=== PATIENT | female | born 1980 | race Caucasian/White ===

== ENCOUNTER 2024-04-20 22:13 | Emergency (ER) | payer OTHER ==
[~2024-04-20] VITALS: Ht 175.3 cm; Wt 77.0 kg
[~2024-04-20 22:13] MED LIST: FLUC200T2 PO; LIDO20SO16 MM; TRAM50TA2 PO
[2024-04-21] MEDS ORDERED: ketorolac trometh. 30mg/ml inj. IV ONE (01:15)
[2024-04-21] MEDS ORDERED: PRED20TA PO (01:15)
[2024-04-21] MEDS ORDERED: LIDO30CR TOP (01:16)
[2024-04-21] MEDS: methylPREDNISolone sod succ 125mg/2ml vial IV ONE (01:23)
[2024-04-21] MEDS: LIDOcaine/PRILOcaine 5gm cream TP ONE (01:23)
[2024-04-21] MEDS: ketorolac tromethamine 15mg/ml inj. IV ONE (01:24)
[2024-04-21] MEDS ORDERED: ESZO2TAB56 PO (01:26)
[2024-04-21 01:37] VITALS: BP 117/82; PULSE 75; RESP 16; TEMP 98.5; O2SAT 97
== END 2024-04-21 01:39 | disposition home or self-care (01) ==
LOC: ER 22:14
DX: L29.8 Other pruritus (principal); L93.2 Other local lupus erythematosus; E03.9 Hypothyroidism, unspecified; R07.81 Pleurodynia; Z88.1 Allergy status to other antibiotic agents; Z88.8 Allergy status to other drugs, medicaments and biological substances; Z79.2 Long term (current) use of antibiotics; Z79.52 Long term (current) use of systemic steroids
CPT/HCPCS: 93005; 96374; 96375; 99284; J1885; J2919

== ENCOUNTER 2024-05-29 17:51 | Emergency (ER) | payer OTHER ==
[~2024-05-29] VITALS: Ht 175.3 cm; Wt 77.0 kg
[~2024-05-29 17:51] MED LIST changes: +ESZO2TAB56 PO; +LIDO30CR TOP
[2024-05-29 18:46] LABS: BASOPHILS % (AUTO) 0.4 % (0-1); EOSINOPHILS % (AUTO) 0.1 % (0-6); LYMPHOCYTES # (AUTO) 0.7 X10'3 (1.1-4.8); MEAN CORPUSCULAR HGB CONC 30.6 g/dL (33.0-36.5); MONOCYTES # (AUTO) 0.2 X10'3 (0-0.9); NEUTROPHILS % (AUTO) 89.2 % (42-75)
[2024-05-29 18:50] LABS: HEMATOCRIT 32.5 % (35.0-45.0); LYMPHOCYTES % (AUTO) 8.3 % (21-51); MEAN CORPUSCULAR HEMOGLOBIN 20.9 PG (27.0-31.0); MEAN CORPUSCULAR VOLUME 68.1 FL (78-98); MEAN PLATELET VOLUME 7.7 FL (7.4-10.4); NEUTROPHILS # (AUTO) 7.8 X10'3 (1.8-7.7); PLATELET COUNT 567 X10'3 (140-440); RED BLOOD COUNT 4.77 X10'6 (4.20-5.60); RED CELL DISTRIBUTION WIDTH 20.3 % (11.5-14.5); WHITE BLOOD COUNT 8.7 X10'3 (4.5-11.0)
[2024-05-29 18:56] LABS: ALBUMIN 4.2 G/DL (3.4-5.0); ANION GAP 8 (8-16); BLOOD UREA NITROGEN 9 MG/DL (7-18); BUN/CREATININE RATIO 7.5 (10.0-20.0); CHLORIDE 102 MMOL/L (99-107); GLUCOSE 155 MG/DL (70-104); POTASSIUM 3.8 MMOL/L (3.5-5.1); PRO BRAIN NATRIURETIC PEPTIDE 140 PG/ML (0-125); SODIUM 140 MMOL/L (135-145); TOTAL CARBON DIOXIDE 30.2 MMOL/L (24-32); eCRCL 63 ML/MIN; eGFR 49 ML/MIN
[2024-05-29 19:01] VITALS: TEMP 98.9
[2024-05-29 19:13] LABS: PLATELET ESTIMATE INCREASED
[2024-05-29 19:14] LABS: ELLIPTOCYTES FEW
[2024-05-29 19:18] LABS: ANISOCYTOSIS 3+; MICROCYTOSIS 2+; SCHISTOCYTES FEW
[2024-05-29 19:20] LABS: POLYCHROMASIA FEW
[2024-05-29] MEDS: dexamethasone sod phosphate 10mg/ml inj IV STA (19:39)
[2024-05-29] MEDS: ondansetron/PF 4mg/2ml inj IV ONE (19:40)
[2024-05-29] MEDS: ketorolac trometh. 30mg/ml inj. IV ONE (19:41)
[2024-05-29] MEDS: dicyclomine 10 MG capsule PO ONE (19:41)
[2024-05-29] MEDS: normal saline 1000ml 1,000 ML IV ONE (19:42)
[2024-05-29] MEDS: LIDOcaine 2% Viscous 15ml cup MM PRN (19:42)
[2024-05-29] MEDS: HYDROcodone/acetaminophen 5mg/325mg tablet PO ONE (19:42)
[2024-05-29] MEDS: mag hydrox/Alum hydrox/simeth 30ml oral suspension PO ONE (19:42)
[2024-05-29] MEDS ORDERED: CLIN300C63 PO (21:01)
[2024-05-29] MEDS ORDERED: PRED20TA PO (21:01)
[2024-05-29 21:30] VITALS: BP 114/83; PULSE 87; RESP 20; O2SAT 100
== END 2024-05-29 21:32 | disposition home or self-care (01) ==
LOC: ER 17:52
DX: M32.9 Systemic lupus erythematosus, unspecified (principal); R74.02 Elevation of levels of lactic acid dehydrogenase [LDH]; E03.9 Hypothyroidism, unspecified; Z88.1 Allergy status to other antibiotic agents; Z88.8 Allergy status to other drugs, medicaments and biological substances; Z79.2 Long term (current) use of antibiotics; Z79.899 Other long term (current) drug therapy
CPT/HCPCS: 36415; 71045; 80048; 83605; 83880; 84145; 84484; 85008; 85025; 93005; 96361; 96374; 96375; 99285; J1100; J1885; J2405; J7030

== ENCOUNTER 2024-06-26 06:05 | Emergency (ER) | payer OTHER ==
[~2024-06-26] VITALS: Ht 175.3 cm; Wt 77.3 kg
[2024-06-26 08:05] LABS: BASOPHILS % (AUTO) 0.4 % (0-1); EOSINOPHILS # (AUTO) 0.1 X10'3 (0-0.9); EOSINOPHILS % (AUTO) 0.9 % (0-6); LYMPHOCYTES # (AUTO) 0.9 X10'3 (1.1-4.8); LYMPHOCYTES % (AUTO) 9.8 % (21-51); MEAN PLATELET VOLUME 7.1 FL (7.4-10.4); MONOCYTES # (AUTO) 0.6 X10'3 (0-0.9); MONOCYTES % (AUTO) 6.8 % (2-12); NEUTROPHILS # (AUTO) 7.6 X10'3 (1.8-7.7); NEUTROPHILS % (AUTO) 82.1 % (42-75); PLATELET COUNT 497 X10'3 (140-440); WHITE BLOOD COUNT 9.3 X10'3 (4.5-11.0)
[2024-06-26 08:08] LABS: ALANINE AMINOTRANSFERASE 31 U/L (12-78); ALBUMIN 4.1 G/DL (3.4-5.0); ALBUMIN/GLOBULIN RATIO 1.1 (1.1-1.5); ALKALINE PHOSPHATASE 61 IU/L (46-116); ANION GAP 10 (8-16); ASPARTATE AMINO TRANSFERASE 24 U/L (10-37); BILIRUBIN,TOTAL 0.2 MG/DL (0.1-1.0); BLOOD UREA NITROGEN 12 MG/DL (7-18); BUN/CREATININE RATIO 10.3 (10.0-20.0); CALCIUM 9.3 MG/DL (8.5-10.1); CHLORIDE 100 MMOL/L (99-107); CREATININE 1.17 MG/DL (0.40-0.90); GLUCOSE 94 MG/DL (70-104); POTASSIUM 3.3 MMOL/L (3.5-5.1); SODIUM 141 MMOL/L (135-145); TOTAL CARBON DIOXIDE 30.7 MMOL/L (24-32); TOTAL PROTEIN 7.7 G/DL (6.4-8.2); eCRCL 64 ML/MIN; eGFR 50 ML/MIN
[2024-06-26 08:15] LABS: PRO BRAIN NATRIURETIC PEPTIDE 100 PG/ML (0-125)
[2024-06-26] MEDS: ondansetron 4mg rapidly disintigrating tab PO ONE (08:19)
[2024-06-26 08:20] LABS: HEMATOCRIT 31.4 % (35.0-45.0); HEMOGLOBIN 9.9 g/dl (12.0-16.0); MEAN CORPUSCULAR HEMOGLOBIN 20.9 PG (27.0-31.0); MEAN CORPUSCULAR HGB CONC 31.7 g/dL (33.0-36.5); MEAN CORPUSCULAR VOLUME 65.9 FL (78-98); RED BLOOD COUNT 4.76 X10'6 (4.20-5.60); RED CELL DISTRIBUTION WIDTH 18.5 % (11.5-14.5)
[2024-06-26 08:57] LABS: ANISOCYTOSIS 2+; MICROCYTOSIS 2+; PLATELET ESTIMATE INCREASED
[2024-06-26 08:58] LABS: ELLIPTOCYTES 1+
[2024-06-26 08:59] LABS: POLYCHROMASIA FEW; TARGET CELLS FEW
[2024-06-26 09:00] LABS: HYPOCHROMASIA 1+
[2024-06-26 09:21] LABS: BILIRUBIN,URINE NEGATIVE (Neg); COLOR,URINE STRAW (Yellow); GLUCOSE, URINE NEGATIVE (Neg); KETONES,URINE NEGATIVE (Neg); LEUKOCYTE ESTERASE ,URINE LARGE (Neg); NITRITES, URINE NEGATIVE (Neg); OCCULT BLOOD,URINE NEGATIVE (Neg); PH,URINE 7.5 (4.8-8.0); PROTEIN,URINE NEGATIVE (Neg); UROBILINOGEN,URINE 0.2 E.U/dL (0.2-1.0)
[2024-06-26 09:22] LABS: CLARITY,URINE SLIGHTLY CLOUDY (Clear); UA COLLECTION TYPE CLN CATCH MIDSTREAM
[2024-06-26 09:23] LABS: URINE HCG NEGATIVE (NEG)
[2024-06-26 09:28] LABS: BACTERIA,URINE 1+ /HPF (Neg); MUCUS STRANDS NONE SEEN /LPF (Neg); RBC,URINE 0-2 /HPF (0-2); SQUAMOUS EPITHELIAL CELL,UR FEW /LPF (FEW); TRANSITIONAL EPI CELLS,URINE FEW /HPF
[2024-06-26] MEDS: mag hydrox/Alum hydrox/simeth 30ml oral suspension PO ONE (10:50)
[2024-06-26] MEDS: LIDOcaine 2% Viscous 15ml cup MM PRN (10:50)
[2024-06-26] MEDS: ketorolac trometh 15mg/ml vial 15 MG/ML ML IV ONE (10:51)
[2024-06-26] MEDS: CefTRIAXone/D5W-Rocephin 1gm 50 ML IV ONE (10:51)
[2024-06-26] MEDS: normal saline 1000ml 1,000 ML IV ONE ×2 (10:52→11:53)
[2024-06-26] MEDS: ondansetron/PF 4mg/2ml inj IV ONE (14:38)
[2024-06-26] MEDS: fluconazole 100mg tablet PO ONE (15:00)
[2024-06-26] MEDS ORDERED: CEFD300C3 PO (15:06)
[2024-06-26] MEDS ORDERED: ONDA-243 PO (15:07)
[2024-06-26] MEDS ORDERED: PROM25TA14 PO (15:07)
[2024-06-26] MEDS ORDERED: FLUC200T PO (15:09)
[2024-06-26 16:32] VITALS: BP 115/80; PULSE 82; RESP 18; TEMP 98.7; O2SAT 98
== END 2024-06-26 16:34 | disposition home or self-care (01) ==
LOC: ER 06:05
DX: B37.81 Candidal esophagitis (principal); N12 Tubulo-interstitial nephritis, not specified as acute or chronic; R00.2 Palpitations; E03.9 Hypothyroidism, unspecified; Z88.1 Allergy status to other antibiotic agents; Z88.8 Allergy status to other drugs, medicaments and biological substances; Z79.899 Other long term (current) drug therapy
CPT/HCPCS: 36415; 71045; 80053; 81001; 81025; 83605; 83880; 84484; 85008; 85025; 87088; 93005; 96361; 96365; 96375; 99285; J0696; J1885; J2405; J7030; 87077; 87186

== ENCOUNTER 2024-06-29 13:46 | Emergency (ER) | payer OTHER ==
[~2024-06-29 13:46] MED LIST changes: +CEFD300C3 PO; +FLUC200T PO; +ONDA-243 PO; +PROM25TA14 PO
[2024-06-29 13:59] VITALS: TEMP 98.8
[2024-06-29 14:25] LABS: BASOPHILS # (AUTO) 0.2 X10'3 (0-0.2); BASOPHILS % (AUTO) 1.2 % (0-1); EOSINOPHILS % (AUTO) 0.1 % (0-6); HEMATOCRIT 31.9 % (35.0-45.0); HEMOGLOBIN 9.5 g/dl (12.0-16.0); LYMPHOCYTES # (AUTO) 0.7 X10'3 (1.1-4.8); LYMPHOCYTES % (AUTO) 4.4 % (21-51); MEAN CORPUSCULAR HGB CONC 29.6 g/dL (33.0-36.5); MEAN CORPUSCULAR VOLUME 67.4 FL (78-98); MEAN PLATELET VOLUME 7.5 FL (7.4-10.4); MONOCYTES # (AUTO) 0.3 X10'3 (0-0.9); NEUTROPHILS # (AUTO) 13.8 X10'3 (1.8-7.7); NEUTROPHILS % (AUTO) 92.3 % (42-75); PLATELET COUNT 569 X10'3 (140-440); RED BLOOD COUNT 4.74 X10'6 (4.20-5.60); RED CELL DISTRIBUTION WIDTH 18.8 % (11.5-14.5); WHITE BLOOD COUNT 14.9 X10'3 (4.5-11.0)
[2024-06-29 14:51] LABS: ALBUMIN 4.1 G/DL (3.4-5.0); ANION GAP 13 (8-16); BLOOD UREA NITROGEN 10 MG/DL (7-18); BUN/CREATININE RATIO 10.6 (10.0-20.0); CALCIUM 9.4 MG/DL (8.5-10.1); CHLORIDE 103 MMOL/L (99-107); CREATININE 0.94 MG/DL (0.40-0.90); FREE T4 (FREE THYROXINE) 0.81 NG/DL (0.73-1.40); GLUCOSE 132 MG/DL (70-104); POTASSIUM 3.8 MMOL/L (3.5-5.1); PRO BRAIN NATRIURETIC PEPTIDE 417 PG/ML (0-125); SODIUM 142 MMOL/L (135-145); THYROID STIMULATING HORMONE 0.33 ulU/ml (0.34-4.50); TOTAL CARBON DIOXIDE 25.6 MMOL/L (24-32); eGFR 65 ML/MIN
[2024-06-29 15:11] LABS: ANISOCYTOSIS 2+; PLATELET ESTIMATE INCREASED
[2024-06-29 15:12] LABS: ACANTHOCYTES FEW; ELLIPTOCYTES 1+; HYPOCHROMASIA 1+; MICROCYTOSIS 2+; POLYCHROMASIA FEW; SCHISTOCYTES FEW; TARGET CELLS FEW
[2024-06-29 16:13] LABS: BILIRUBIN,URINE NEGATIVE (Neg); CLARITY,URINE CLOUDY (Clear); COLOR,URINE YELLOW (Yellow); GLUCOSE, URINE NEGATIVE (Neg); KETONES,URINE NEGATIVE (Neg); LEUKOCYTE ESTERASE ,URINE MODERATE (Neg); NITRITES, URINE NEGATIVE (Neg); OCCULT BLOOD,URINE NEGATIVE (Neg); PROTEIN,URINE NEGATIVE (Neg); UROBILINOGEN,URINE 0.2 E.U/dL (0.2-1.0)
[2024-06-29] MEDS: ondansetron 4mg rapidly disintigrating tab PO ONE (16:13)
--- NOTE | 2024-06-29 16:30 | NUR ---
Paged the PICC nurse regarding putting an IV in but had no response.
[2024-06-29 16:32] LABS: URINE AMPHETAMINE SCREEN POSITIVE (Neg); URINE BARBITUATE SCREEN POSITIVE (Neg); URINE BENZODIAZEPINES SCREEN NEGATIVE (Neg); URINE CANNABINOID SCREEN NEGATIVE (Neg); URINE COCAINE SCREEN NEGATIVE (Neg); URINE METHADONE SCREEN NEGATIVE (Neg); URINE OPIATE SCREEN NEGATIVE (Neg); URINE PHENCYCLIDINE SCREEN NEGATIVE (Neg)
[2024-06-29 16:40] LABS: UA COLLECTION TYPE NON-SPECIFIED
[2024-06-29 16:44] LABS: MUCUS STRANDS FEW /LPF (Neg); SQUAMOUS EPITHELIAL CELL,UR MODERATE /LPF (FEW); TRANSITIONAL EPI CELLS,URINE MODERATE /HPF
[2024-06-29 16:45] LABS: BACTERIA,URINE FEW /HPF (Neg); RBC,URINE 0-2 /HPF (0-2)
--- NOTE | 2024-06-29 17:19 | NUR ---
YAO SMART ATTEMPTED AN ULTRASOUND IV AND WAS UNSUCCESSFUL. NETWORKING TECHNICIAN NOTIFIED.
--- NOTE | 2024-06-29 17:19 | NUR ---
PATIENT AMBULATED TO THE BATHROOM.
--- NOTE | 2024-06-29 17:40 | NUR ---
Dr. Hurtado and DIALLO Maddox at bedside.
[2024-06-29 17:44] VITALS: BP 163/93; PULSE 129; RESP 12; O2SAT 99
[2024-06-29] MEDS ORDERED: PRED20TA PO (17:46)
[2024-06-29] MEDS ORDERED: CEFD300C3 PO (17:46)
--- NOTE | 2024-06-29 17:51 | NUR ---
per dr cosme pt can drink fluids orally ok to non-admin bolus
[2024-06-29] MEDS: normal saline 1000ML IV soln IVB ONE (17:52)
== END 2024-06-29 17:58 | disposition home or self-care (01) ==
LOC: ER 13:47
DX: B37.81 Candidal esophagitis (principal); R97.0 Elevated carcinoembryonic antigen [CEA]; R07.9 Chest pain, unspecified; L29.8 Other pruritus; N12 Tubulo-interstitial nephritis, not specified as acute or chronic; E03.9 Hypothyroidism, unspecified; Z88.1 Allergy status to other antibiotic agents; Z88.8 Allergy status to other drugs, medicaments and biological substances; Z79.899 Other long term (current) drug therapy; Z79.52 Long term (current) use of systemic steroids
CPT/HCPCS: 36415; 71045; 80048; 80305; 81001; 83605; 83880; 84145; 84439; 84443; 84484; 85008; 85025; 87077; 87088; 87186; 93005; 99285